=== PATIENT | male | born 2000 | race Caucasian/White ===

== ENCOUNTER 2020-11-15 14:35 | Emergency (ER) | payer OTHER, SELFPAY ==
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
[2020-11-15 14:40] VITALS: BP 114/57; PULSE 73; RESP 18; TEMP 36.9; O2SAT 97; BMI 20.1
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
[2020-11-15] MEDS: Acetaminophen 325 MG TABLET 650 MG PO (17:28)
== END 2020-11-15 17:47 | disposition home or self-care (01) ==
PROVIDERS: Emergency Provider Internal Medicine
DX: S09.90XA Unspecified injury of head, initial encounter (principal); V89.2XXA Person injured in unspecified motor-vehicle accident, traffic, initial encounter; Y93.9 Activity, unspecified; Y92.410 Unspecified street and highway as the place of occurrence of the external cause; Y99.9 Unspecified external cause status
CPT/HCPCS: 70450; 99283; 99284